=== PATIENT | male | born 1965 | race Caucasian/White ===

== ENCOUNTER 2021-06-04 21:15 | Inpatient (IN) | payer BC, OTHER ==
[~2021-06-04] VITALS: Ht 172.7 cm; Wt 68.2 kg
[~2021-06-04 21:15] MED LIST: temazepam 15mg capsule PO PRN
[2021-06-04 21:45] LABS: BASOPHILS # (AUTO) 0.1 X10'3 (0-0.2); BASOPHILS % (AUTO) 0.9 % (0-1); EOSINOPHILS # (AUTO) 0.2 X10'3 (0-0.9); EOSINOPHILS % (AUTO) 1.5 % (0-6); LYMPHOCYTES # (AUTO) 4.1 X10'3 (1.1-4.8); LYMPHOCYTES % (AUTO) 33.2 % (21-51); MEAN CORPUSCULAR HEMOGLOBIN 37.8 PG (27.0-31.0); MEAN CORPUSCULAR HGB CONC 33.3 g/dL (33.0-36.5); MEAN CORPUSCULAR VOLUME 113.5 FL (78-98); MEAN PLATELET VOLUME 7.2 FL (7.4-10.4); MONOCYTES # (AUTO) 1.3 X10'3 (0-0.9); MONOCYTES % (AUTO) 10.6 % (2-12); NEUTROPHILS # (AUTO) 6.7 X10'3 (1.8-7.7); NEUTROPHILS % (AUTO) 53.8 % (42-75); PLATELET COUNT 261 X10'3 (140-440); RED BLOOD COUNT 1.63 X10'6 (4.70-6.10); RED CELL DISTRIBUTION WIDTH 15.1 % (11.5-14.5); WHITE BLOOD COUNT 12.4 X10'3 (4.5-11.0)
[2021-06-04 21:52] LABS: HEMOGLOBIN 6.2 g/dl (14.0-17.9)
[2021-06-04 21:53] LABS: HEMATOCRIT 18.5 % (42.0-52.0)
[2021-06-04 21:56] LABS: ALANINE AMINOTRANSFERASE 27 U/L (12-78); ALBUMIN 2.6 G/DL (3.4-5.0); ALBUMIN/GLOBULIN RATIO 0.9 (1.1-1.5); ALKALINE PHOSPHATASE 60 IU/L (46-116); ANION GAP 13 (8-16); ASPARTATE AMINO TRANSFERASE 28 U/L (10-37); BILIRUBIN,TOTAL 0.2 MG/DL (0.1-1.0); BLOOD UREA NITROGEN 4 MG/DL (7-18); BUN/CREATININE RATIO 6.3 (5.4-32.0); CALCIUM 7.9 MG/DL (8.5-10.1); CHLORIDE 102 MMOL/L (99-107); CREATININE 0.64 MG/DL (0.60-1.10); GLUCOSE 92 MG/DL (70-104); POTASSIUM 3.3 MMOL/L (3.5-5.1); SODIUM 136 MMOL/L (135-145); TOTAL CARBON DIOXIDE 21.4 MMOL/L (24-32); TOTAL PROTEIN 5.6 G/DL (6.4-8.2); eGFR > 90 ML/MIN
[2021-06-04] MEDS ORDERED: octreotide inj. 1,250 MCG in normal saline 250ml IV soln 243.75 ML IV SCH (23:10)
[2021-06-04] MEDS ORDERED: cefTRIAXone 1g/NS 100ml IVPB 100 ML IV ONE (23:15)
[2021-06-04 23:25] LABS: APTT 24 SECONDS (22-32)
[2021-06-04] MEDS ORDERED: HYDROcodone/acetaminophen 5mg/325mg tablet PO PRN (23:25)
[2021-06-04] MEDS ORDERED: diphenhydrAMINE 50 mg/ml inj IV PRN (23:25)
[2021-06-04] MEDS ORDERED: ondansetron 4mg rapidly disintigrating tab PO PRN (23:25)
[2021-06-04] MEDS ORDERED: diphenhydrAMINE 25mg capsule PO PRN (23:25)
[2021-06-04] MEDS ORDERED: acetaminophen 325mg tablet PO PRN ×2 (23:25)
[2021-06-04] MEDS ORDERED: dextrose 50%-water 50ml dispensing syringe IV PRN (23:25)
[2021-06-04] MEDS ORDERED: bisacodyl 10mg suppository rectal RC PRN (23:25)
[2021-06-04] MEDS ORDERED: magnesium hydroxide 30ml (MOM) UD suspension PO PRN (23:25)
[2021-06-04] MEDS ORDERED: acetaminophen 650mg rectal suppository RC PRN (23:25)
[2021-06-04] MEDS ORDERED: LORazepam 2 mg/ml vial IV PRN (23:25)
[2021-06-04] MEDS ORDERED: haloperidol 5mg tablet PO PRN (23:25)
[2021-06-04] MEDS ORDERED: ondansetron/PF 4mg/2ml inj IV PRN (23:25)
[2021-06-04] MEDS ORDERED: morphine 2 MG/ML inj. syringe IV PRN ×2 (23:25)
[2021-06-04] MEDS ORDERED: haloperidol lactate 5mg/ml inj IM PRN (23:25)
[2021-06-04] MEDS ORDERED: mag hydrox/Alum hydrox/simeth 30ml oral suspension PO PRN (23:25)
[2021-06-04] MEDS: normal saline 1000ml 1,000 ML IV SCH ×2 (23:28→23:53)
[2021-06-04] MEDS ORDERED: potassium Cl 40MEQ/1/2NS 520ml 520 ML IV PRN ×2 (23:30)
[2021-06-04] MEDS ORDERED: diltiazem 5mg/ml 5ml inj. IV ONE (23:30)
[2021-06-04] MEDS ORDERED: potassium Cl 20 mEq SR tablet PO PRN ×2 (23:30)
[2021-06-04] MEDS ORDERED: octreotide inj. 500 MCG in normal saline 100ml IV soln 97.5 ML IV SCH (23:30)
[2021-06-04] MEDS ORDERED: potassium CL 10mEq/100ml bag 100 ML IV PRN (23:35)
[2021-06-04 23:42] LABS: HEMOGLOBIN A1C 4.2 % (4.5-6.2); MAGNESIUM 2.2 MG/DL (1.5-2.4); PHOSPHORUS 2.8 MG/DL (2.3-4.5)
[2021-06-04] MEDS ORDERED: ringers solution, lacted 1,000 ML IV ONE (23:45)
[2021-06-04] MEDS ORDERED: NO HOME MEDS (23:52)
[2021-06-04 23:53] LABS: OCCULT BLOOD STOOL POSITIVE (Neg)
[2021-06-05] VITALS (12 sets, daily range): BP systolic 85–123; BP diastolic 51–85
[2021-06-05] MEDS ORDERED: nicotine 21mg patch - 24 hr TD ONE (00:10)
[2021-06-05] MEDS: normal saline 1000ml 1,000 ML IV SCH ×2 (00:38→00:49)
[2021-06-05] MEDS ORDERED: pantoprazole 40MG/NS 100ML BAG 100 ML IV SCH (01:00)
[2021-06-05 01:14] LABS: PLATELET ESTIMATE NORMAL
[2021-06-05 01:18] LABS: LIPASE 123 U/L (73-393)
[2021-06-05 01:19] LABS: ANISOCYTOSIS FEW; LARGE PLATELETS FEW
[2021-06-05 01:20] LABS: POLYCHROMASIA FEW
[2021-06-05] MEDS: pantoprazole 40MG/NS 100ML BAG 100 ML IV SCH ×3 (01:39→11:00)
[2021-06-05 07:12] LABS: BASOPHILS # (AUTO) 0.1 X10'3 (0-0.2); BASOPHILS % (AUTO) 1.9 % (0-1); EOSINOPHILS # (AUTO) 0.1 X10'3 (0-0.9); EOSINOPHILS % (AUTO) 1.5 % (0-6); HEMOGLOBIN 7.7 g/dl (14.0-17.9); LYMPHOCYTES # (AUTO) 1.6 X10'3 (1.1-4.8); LYMPHOCYTES % (AUTO) 29.5 % (21-51); MEAN CORPUSCULAR HEMOGLOBIN 34.5 PG (27.0-31.0); MEAN CORPUSCULAR HGB CONC 33.6 g/dL (33.0-36.5); MEAN CORPUSCULAR VOLUME 102.5 FL (78-98); MEAN PLATELET VOLUME 7.4 FL (7.4-10.4); MONOCYTES # (AUTO) 0.7 X10'3 (0-0.9); MONOCYTES % (AUTO) 13.2 % (2-12); NEUTROPHILS % (AUTO) 53.9 % (42-75); PLATELET COUNT 195 X10'3 (140-440); RED BLOOD COUNT 2.24 X10'6 (4.70-6.10); RED CELL DISTRIBUTION WIDTH 19.7 % (11.5-14.5); WHITE BLOOD COUNT 5.5 X10'3 (4.5-11.0)
[2021-06-05 07:24] LABS: ALANINE AMINOTRANSFERASE 25 U/L (12-78); ALBUMIN 2.3 G/DL (3.4-5.0); ALBUMIN/GLOBULIN RATIO 0.9 (1.1-1.5); ALKALINE PHOSPHATASE 49 IU/L (46-116); ANION GAP 12 (8-16); ASPARTATE AMINO TRANSFERASE 31 U/L (10-37); BILIRUBIN,TOTAL 0.4 MG/DL (0.1-1.0); BLOOD UREA NITROGEN 2 MG/DL (7-18); BUN/CREATININE RATIO 3.3 (5.4-32.0); CALCIUM 7.2 MG/DL (8.5-10.1); CHLORIDE 106 MMOL/L (99-107); GLUCOSE 125 MG/DL (70-104); SODIUM 141 MMOL/L (135-145); TOTAL CARBON DIOXIDE 22.6 MMOL/L (24-32); eGFR > 90 ML/MIN
[2021-06-05] MEDS ORDERED: docusate sod 100mg capsule PO SCH (08:00)
[2021-06-05] MEDS ORDERED: folic acid 1mg/0.2ml inj IV SCH (08:00)
[2021-06-05] MEDS ORDERED: K and/or MAG REPLACEMENT MC SCH (08:00)
[2021-06-05] MEDS: thiamine 100mg/ml 2ml inj. IV SCH ×2 (08:27→12:59)
[2021-06-05 08:43] LABS: PLATELET ESTIMATE NORMAL
[2021-06-05 08:44] LABS: ANISOCYTOSIS 2+
--- NOTE | 2021-06-05 14:53 | NUR ---
patient voluntarily leaving hospital against the advise of doctor. alert x4, ambulating and vitals stable.all iv saline lock remove ,tele pack prior to leaving the hospital.. doctor and charge nurse notified.
[2021-06-06] MEDS ORDERED: LORazepam 1 MG tablet PO PRN (23:25)
[2021-06-06] MEDS ORDERED: LORazepam 2 mg/ml vial IV PRN (23:25)
[2021-06-08] MEDS ORDERED: LORazepam 2 mg/ml vial IV PRN (23:25)
[2021-06-08] MEDS ORDERED: LORazepam 1 MG tablet PO PRN (23:25)
[2021-06-09] MEDS ORDERED: folic acid 1mg tablet PO SCH (08:00)
[2021-06-09] MEDS ORDERED: thiamine 100mg tablet PO SCH (08:00)
== END 2021-06-05 14:44 | disposition left against medical advice (07) | DRG 378 ==
LOC: ER 21:16 → ED HOLD 23:26 → PCU 3S 06-05 05:03
PROVIDERS: ADMIT Family Medicine; ATTEND Internal Medicine
PROC: 30233N1 Transfusion of Nonautologous Red Blood Cells into Peripheral Vein, Percutaneous Approach (ICD-10-PCS; principal; 2021-06-05)
DX: K92.2 Gastrointestinal hemorrhage, unspecified (principal); I48.92 Unspecified atrial flutter; E86.1 Hypovolemia; E87.6 Hypokalemia; F10.20 Alcohol dependence, uncomplicated; Z20.822 Contact with and (suspected) exposure to COVID-19; Y90.9 Presence of alcohol in blood, level not specified; D50.0 Iron deficiency anemia secondary to blood loss (chronic); Z53.29 Procedure and treatment not carried out because of patient's decision for other reasons; Z72.0 Tobacco use; Z71.6 Tobacco abuse counseling; Z71.41 Alcohol abuse counseling and surveillance of alcoholic
CPT/HCPCS: 36415; 71045; 80053; 82272; 83036; 83690; 83735; 83880; 84100; 84484; 85008; 85025; 85610; 85730; 86885; 86900; 86901; 86920; 87081; 87635; 93005; 99285; C9113; G0378; J0696; J2354; J3411; J3490; J7030; J7120; P9016